=== PATIENT | male | born 1975 | race Caucasian/White ===

== ENCOUNTER 2022-10-15 09:20 | Observation (INO) ==
[2022-10-15] MEDS ORDERED: VANCOMYCIN HCL 1000MG/20ML VIAL ONE (09:45)
[2022-10-15] MEDS ORDERED: WATER, STERILE FOR INJ 10 ML VIAL ONE (09:45)
[2022-10-15] MEDS ORDERED: BUPIVACAINE 0.25% PF 30 ML VIAL ONE (09:45)
[2022-10-15] MEDS ORDERED: LIDOCAINE 1% LOCAL 20 ML VIAL ONE (09:45)
[2022-10-15] MEDS ORDERED: MIDAZOLAM HCL 5 MG/ML 1 ML VIAL ONE (10:38)
[2022-10-15] MEDS ORDERED: ceFAZolin 330 MG/ML 1 GM VIAL ONE (10:39)
[2022-10-15] MEDS ORDERED: fentaNYL citrate PF 100 MCG/2 ML VIAL ONE (10:39)
--- NOTE | 2022-10-15 10:51 | Pre Anesthesia Assessment ---
Date of Service October 15, 2022 Pre Sedation Assessment Vital Signs Temp Pulse Resp BP Pulse Ox O2 Del Method 10/15/22 09:42 36.8 C 69 16 138/101 H 94 Room Air Cardiovascular + regular rate and + regular rhythm Respiratory + respiratory effort normal Pre-Sedation Airway Assessment Smoking Status: Current every day smoker Hx Sleep Apnea: Yes Hx Difficult Intubation: No Short, Thick Neck: No Thyromental Distance: > or= 3.5 Finger Breadths Oral Cavity: + WNL Mallampati Class: III ASA: ASA4 NPO Status Date of Last Intake of Fluids: 10/15/22 Time of Last Intake of Fluids: 07:00 Last Oral Intake of Fluids Comment: sip with meds Date of Last Intake of Solid Food: 10/14/22 Time of Last Intake of Solid Foods: 19:00 Procedure Planning Contraindications for Sedation: none Current Medications Reviewed: Yes Notes The planned sedation has been discussed with the patient. Informed Consent was obtained. I have identified the patient, determined the appropriateness of sedation and have assessed the patient immediately prior to the procedure. All medicine(s) and interventions are by my order.
--- NOTE | 2022-10-15 10:57 | History & Physical Report ---
Date of Service October 15, 2022 Assessment & Plan (1) NICM (nonischemic cardiomyopathy): (2) Left bundle branch block: Plan 1. Cardiomyopathy: Patient is on aggressive medical regimen without significant improvement in LV function. Meets criteria for an ICD as primary prevention against sudden cardiac . He has left bundle branch block morphology on his EKG 166 milliseconds. This makes him a good candidate for biventricular device and cardiac resynchronization therapy. [place] Heart Association class 2 symptoms. No revascularization in the past 90 days. No myocardial infarction in the past 45 days. Estimated longevity greater than 1 year. Plan biventricular ICD History of Present Illness Chief Complaint: Dyspnea Primary Care Provider: Bar Stuart MD The patient is a 47-year-old gentleman discovered to have a nonischemic cardiomyopathy. Currently [place] heart Association class 2 symptoms. No cu rrent symptoms of dizziness or history of syncope. He presents today for implant of a biventricular ICD. Allergies Allergy/AdvReac Type Severity Reaction Status Date / Time latex Allergy Unknown red welts Verified 10/15/22 09:50 aspirin Allergy epitaxis Verified 10/15/22 09:50 salicylates Allergy Unknown Verified 10/15/22 09:50 Home Medications Medication Instructions Recorded Confirmed Type albuterol sulfate 0.63 mg/3 mL 0.63 mg inhalation Q6H PRN 08/25/22 10/15/22 History solution for nebulization shortness of breath or wheezing aspirin 81 mg tablet,delayed 81 mg PO DAILY 08/25/22 10/15/22 History release atorvastatin 40 mg tablet 40 mg PO DAILY 08/25/22 10/15/22 History budesonide 0.25 mg/2 mL suspension 0.5 mg inhalation DAILY 08/25/22 10/15/22 History for nebulization (Pulmicort) empagliflozin 10 mg tablet 10 mg PO DAILY 08/25/22 10/15/22 History (Jardiance) fluticasone propionate 50 2 spray intranasal DAILY 08/25/22 10/15/22 History mcg/actuation nasal spray,suspension ipratropium 20 mcg-albuterol 100 1 puff inhalation QID 08/25/22 10/15/22 History mcg/actuation mist for inhalation (Combivent Respimat) loratadine 10 mg tablet 10 mg PO DAILY 08/25/22 10/15/22 History metformin 500 mg tablet 1,000 mg PO BID 08/25/22 10/15/22 History metoprolol succinate 50 mg 25 mg PO BID 08/25/22 10/15/22 History tablet,extended release 24 hr montelukast 10 mg tablet 10 mg PO QPM 08/25/22 10/15/22 History (Singulair) omeprazole 20 mg capsule,delayed 40 mg PO DAILY 08/25/22 10/15/22 History release paroxetine HCl 40 mg tablet 40 mg PO DAILY 08/25/22 10/15/22 History sacubitril 97 mg-valsartan 103 mg 1 tab PO BID 08/25/22 10/15/22 History tablet (Entresto) spironolactone 25 mg tablet 25 mg PO DAILY 08/25/22 10/15/22 History tamsulosin 0.4 mg capsule 0.4 mg PO DAILY 08/25/22 10/15/22 History Past Med/Surg History Family History (Updated 08/25/22 @ 10:27 by AJ Trevino) Father Diabetes Mother , Lung Disease No problems noted. Sister Sleep apnea Daughter Asthma Daughter Asthma Daughter Eye problems Social History (Updated 08/25/22 @ 10:28 by AJ Trevino) Smoking Status: Current every day smoker Tobacco Type: Cigarettes Cigarettes Per Day: 10; Second Hand Exposure: No; Do You Dip or Chew Tobacco: No (former); Hx Alcohol Use: No Hx Substance Use: No Current Living Situation: Spouse Review of Systems Review of Systems: Per HPI. Some itching of the foot Physical Exam Physical Exam: The patient is alert and oriented. Mood and affect appeared normal. He answered all questions appropriately. HEENT: Pupils are equal and reactive to light and accommodation. Extraocular movements are intact. The sclerae are anicteric. Neuro: Cranial nerves intact Lungs: Clear to auscultation bilaterally. He has good air movement without use of accessory muscles. No rales wheezes or rhonchi. Cardiac: Heart demonstrates a regular rate and rhythm. Normal S1 and S2. No murmurs on examination. Pulses: The patient has palpable radial pulses bilaterally that are equal in intensity Extremities: There was no evidence of hypoperfusion. There is no cyanosis or clubbing. There is no edema. Skin: I did not appreciate any rashes on examination today. Results & Data Results & Data Vital Signs (Past 12 Hours) Vital Signs Temp Pulse Resp BP Pulse Ox O2 Del Method 10/15/22 09:42 36.8 C 69 16 138/101 H 94 Room Air Diagnostic Findings Echocardiogram dated 09/18/2021: Ejection fraction 25%. Severe dilation of the left ventricle. Diffuse hypokinesis. Mild biatrial dilation. Small pericardial effusion. Dated 05/28/2022: Severely reduced LV systolic function with ejection fraction of 15%. Severe left ventricular dilation. Moderate posterior pericardial effusion.
[2022-10-15] MEDS ORDERED: ACETAMINOPHEN 325 MG TAB PO PRN (12:24)
--- NOTE | 2022-10-15 12:24 | Post Anesthesia Assessment ---
Date of Service October 15, 2022 Post Sedation Assessment Vital Signs Temp Pulse Resp BP Pulse Ox O2 Del Method 10/15/22 09:42 36.8 C 69 16 138/101 H 94 Room Air Recovery Score Activity: Moves 4 extremities Respiration: Deep Breath/Cough Circulation: +/-20% PreAnes Value Consciousness: Arouseable (by name) Oxygen Saturation: > 92% On Room Air Discharge Sedation Level of Care: Fast Track Phase II Post Sedation Plan On clinical assessment, the patient appears to have tolerated the sedation without complications. Patient is recovering as anticipated. Patient will continue to be monitored by nursing and may be discharged when sedation discharge criteria are met per below protocol. Upon Completions of procedure up to 15 minutes continue every 5 minute vital signs and the P.A.R. score; then discharge to a Phase I or Fast Track to Phase II per the following guidelines: * Discharge Patient to appropriate Phase II area if PAR is 8 or greater or return to pre- procedure baseline. The post - procedure orders will be as directed. * If PAR score is less than 8 or not return to pre-procedure baseline then patient will follow Phase I monitoring till PAR is reached for Phase II. The Phase I may be done in procedure room or may call to secure a Phase I area. * If naloxone or flumazenil are used for reversal, hold in Phase I for continued monitoring from when last reversal dose was given for a minimum of 60 minutes or longer pending the nurse and/or physician discretion of patient condition before discharge to Phase II. Please call the Sedation Physician to re-evaluate and complete post-note for discharge to Phase II area. Do NOT discharge from procedure sedation or Phase 1 until post- sedation evaluation note is complete by procedure /sedation MD Sedation Discharge Instructions to be given to the patient at discharge to home.
--- NOTE | 2022-10-15 12:24 | Electrophysiology Report ---
Date of Service October 15, 2022 Electrophysiology Procedure Electrophysiology Procedure Report Procedure performed: Implantation of dual-chamber ICD with additional left bundle pacing lead Staff jewelry polisher: Keshawn Fofana MD Indication: The patient is a 47-year-old gentleman with a history of a nonischemic cardiomyopathy. He has [place] heart Association class 2 symptoms. He is on guideline directed medical therapy. He has not had revascularization in the past 90 days or suffer myocardial infarction in the past 40 days. He has an estimated longevity greater than 1 year. He has left bundle branch block morphology on his EKG with a QRS duration greater than 150 milliseconds. He is therefore felt to be a good candidate for an ICD as primary prevention against sudden cardiac . Resynchronization was advised given his left bundle branch block and wide QRS. Procedure in detail: The patient was informed of the risks benefits and alternatives to the intended procedure and she wished to proceed. She was taken to the electrophysiology suite in a fasting state. A preoperative antibiotic had been administered. The patient was monitored electrocardiographically throughout today's procedure and conscious sedation was administered per protocol. The left upper pectoral area is prepped and draped in usual sterile fashion. This area was anesthetized using subcutaneous administration of a xylocaine solution. An incision was made at this site and carried down to the prepectoralis fascia using sharp dissection. Electrocautery was also employed for dissection as well as for hemostasis. A device pocket was fashioned tissues above the pectoralis muscle. Subsequent to this maneuver the left axillary vein was accessed using modified Seldinger technique. A sheath was placed over guidewire at this site used facilitate passage of an ICD lead to the right ventricular apex under fluoroscopic guidance. Adequate sensing threshold parameters were obtained prior to active fixation lead to the endocardial surface. Proximal portion lead was then sutured to prepectoralis fascia using nonabsorbable suture. A sheath was placed over another guidewire and used facilitate passage of the guiding catheter for mapping of the interventricular septum. Once an adequate location was identified a pacing lead was advanced into the interventricular septum until the appropriate electrocardiographic and threshold parameters were adequate. At this point the guiding catheter was removed. The proximal portion lead was then sutured to prepectoralis fascia using nonabsorbable suture. A sheath was placed over the remaining guidewire and used facilitate passage of the pacing lead to the right atrium under fluoroscopic guidance. Adequate sensing threshold parameters were obtained prior to active fixation of this lead to the endocardial surface. The proximal portion lead was then sutured to prepectoralis fascia using nonabsorbable suture. The device pocket was irrigated with antibiotic solution. The leads were then attached to the device. The device and leads were then placed in the pocket and pocket was closed in 3 layers of absorbable suture. Steri-Strips and sterile dressing were applied. The device was tested noninvasively prior to conclusion the procedure. The patient tolerated procedure well there no immediate complications. Equipment used: New pulse generator: Tear Down Worker [employer]. Model number: [id number] serial number [id number] Right atrial lead: Tear Down Worker [employer]. Model number: [id number] serial number [id number] Right ventricular lead: Tear Down Worker [employer]. Model number: 6935 mm serial number [id number] Left bundle pacing lead: Tear Down Worker [employer]. Model 3. 830 serial number [id number] Measured data: Right atrial lead: P-waves measured 2.9 mV. Pacing threshold was 1.25 volts at 0.4 milliseconds with a pacing impedance of 399 Ohms Right ventricular lead: R-waves measured 14.6 mV. Pacing threshold was 0.5 volts at 0.4 millisecond with a pacing impedance of 513 Ohms Left bundle pacing lead: R-waves measured 16.6 mV. Pacing threshold was 0.5 volts at 0.4 milliseconds with a pacing impedance of 760 Ohms Impression: Successful implantation of dual-chamber ICD with additional left bundle pacing lead MNPG Electrophysiology codes Pacing Procedure 1: Pacin Insert permanent lead, single ICD Procedure 1: ICD: 16109 Insert single or dual ICD system PG Moderate Sedation Codes Moderate Sedation Codes Procedure 1: Sedation/Anesthesia: 29946 Mod Sedation by the same physician;Init15 Min Child Age 5 & Up Procedure 2: Sedation/Anesthesia: 18948 Mod Sedation by the same physician; Ea [id number] Minutes
[2022-10-15] MEDS ORDERED: oxyCODONE HCL IR 5 MG TAB (IMMEDIATE RELEASE) PO PRN (12:28)
[2022-10-15] MEDS ORDERED: ALBUTEROL 0.083% NEBU SOLN 3 ML VIAL INH PRN (16:01)
[2022-10-15] MEDS ORDERED: GLUCOSE 40% GEL 15 GM TUBE PO PRN (16:15)
[2022-10-15] MEDS ORDERED: GLUCOSE 10 TAB/TUBE PO PRN (16:15)
[2022-10-15] MEDS ORDERED: CARBOHYDRATES FOR HYPOGLYCEMIA PO PRN (16:15)
[2022-10-15] MEDS ORDERED: GLUCAGON FOR INJ 1 MG VIAL IM PRN (16:15)
[2022-10-15] MEDS ORDERED: DEXTROSE 50% 50 ML SYRINGE IV PRN (16:15)
[2022-10-15] MEDS: metFORMIN HCL 500 MG TAB PO SCH (16:24)
[2022-10-15] MEDS ORDERED: ceFAZolin 2000MG 2,000 MG/15 ML SYR IV ONE (17:00)
--- NOTE | 2022-10-15 17:55 | Electrocardiogram Report ---
Test Reason : Blood Pressure : / mmHG Vent. Rate : 061 BPM Atrial Rate : 061 BPM P-R Int : 180 ms QRS Dur : 100 ms QT Int : 458 ms P-R-T Axes : 054 -60 107 degrees QTc Int : 461 ms Atrial-sensed ventricular-paced rhythm with frequent AV dual-paced complexes Abnormal ECG No previous ECGs available Confirmed by Keshawn Fofana ([id number]) on 10/15/2022 5:54:28 PM Referred By: Hiro Fofana Confirmed By:Hiro Fofana
[2022-10-15] MEDS: IPRATROPIUM BROMIDE HFA INHALER INH SCH (19:28)
[2022-10-15] MEDS: ALBUTEROL HFA INHALER 8.5 GM INH SCH (19:29)
[2022-10-15] MEDS: METOPROLOL SUCC 25MG EXT REL TAB PO SCH (19:36)
[2022-10-15] MEDS: VALSARTAN/SACUBITRIL 103/97MG TAB PO SCH (19:36)
[2022-10-15] MEDS ORDERED: MONTELUKAST SODIUM 10 MG TABLET PO SCH (21:00)
[2022-10-15] MEDS ORDERED: PANTOprazole 40 MG TAB PO SCH (22:00)
--- NOTE | 2022-10-16 07:04 | Discharge Summary ---
Date of Service October 16, 2022 Admission HPI Per Admitting Provider The patient is a 47-year-old gentleman discovered to have a nonischemic cardiomyopathy. Currently [place] heart Association class 2 symptoms. No current symptoms of dizziness or history of syncope. He presents today for implant of a biventricular ICD. Principal Diagnosis nonischemic cardiomyopathy Discharge Exam The patient is alert and oriented. Mood and affect appeared normal. He answered all questions appropriately. HEENT: Pupils are equal and reactive to light and accommodation. Extraocular movements are intact. The sclerae are anicteric. Neuro: Cranial nerves intact Lungs: normal respiratory effort Chest: Evaluation the device implant site did not reveal any evidence of hematoma. No significant drainage or erythema ENMT Mallampati Class: III Respiratory normal respiratory effort Cardiovascular Rate/Rhythm: regular rate and regular rhythm Discharge Data Allergies Allergy/AdvReac Type Severity Reaction Status Date / Time latex Allergy Unknown red welts Verified 10/15/22 09:50 aspirin Allergy epitaxis Verified 10/15/22 09:50 salicylates Allergy Unknown Verified 10/15/22 09:50 Procedures Performed Operation Date: 10/15/22 11:00 Actual Procedures p ICD Insertion Single or Dual - Keshawn Fofana MD s Lead LV (No Priopr Implant) - Keshawn Fofana MD Ordered Studies 10/15/22 07:30 EP Lab Images for PACS ONCE Hospital Course (1) NICM (nonischemic cardiomyopathy): (2) Left bundle branch block: Plan 1. Cardiomyopathy: on the day of admission the patient underwent implantation of an ICD with a left bundle pacing lead. The remainder of hospitalization was uneventful. The following morning a device interrogation revealed good function of all 3 leads. Chest x-ray demonstrated good lead position without pneumothorax. No evidence of hematoma. Total Time Total Time Spent Total Time Spent (In Minutes): 20 Discharge Plan Discharge Items Patient Disposition: Home - Self-Care Reason For Visit: Cardiomyopathy and Left Bundle Branch Block Discharge Diagnosis: cardiomyopathy Condition on Discharge: Good Activity: Resume your previous activity Lifting: No more than 10 pounds Lifting Comment: No lifting left arm above shoulder or behind neck for 6 weeks Bathing: Keep incision dry Bathing Comment: Keep wound dry and steri-strip intact until f/u next week Exercise/Sports: Rest today Driving/Machine Use: Resume 1 day after discharge Non-emergency contact: School Supervisor Call non-emergency contact if: you have any medication questions, your pain is concerning for you, you have a fever and your wound has increased redness Follow-up/Referrals: Bar Stuart MD [Primary Care Provider] - Diet: Carb Consistent or DM2 and Heart Healthy Addtl Attending Provider Instructions: none Pending Studies at Discharge: No Stand-Alone Forms: [facility] JDCPhosphate, Smoking Cessation Medications and DC Order Prescriptions: New oxycodone 5 mg Tablet 5 mg PO Q4H PRN (Reason: pain) Qty: 6 0RF oxycodone 5 mg tablet 5 mg PO Q4H PRN (Reason: pain) Qty: 6 0RF Continued albuterol sulfate 0.63 mg/3 mL solution for nebulization 0.63 mg inhalation Q6H PRN (Reason: shortness of breath or wheezing) Combivent Respimat 20-100 mcg/actuation mist 1 puff inhalation QID Rx Instructions: space evenly during waking hours aspirin 81 mg tablet,delayed release (DR/EC) 81 mg PO DAILY budesonide [Pulmicort] 0.25 mg/2 mL suspension for nebulization 0.5 mg inhalation DAILY Jardiance 10 mg tablet 10 mg PO DAILY loratadine 10 mg tablet 10 mg PO DAILY paroxetine HCl 40 mg tablet 40 mg PO DAILY omeprazole 20 mg capsule,delayed release(DR/EC) 40 mg PO DAILY tamsulosin 0.4 mg capsule 0.4 mg PO DAILY Entresto 97-103 mg tablet 1 tab PO BID metoprolol succinate 50 mg tablet extended release 24 hr 25 mg PO BID spironolactone 25 mg tablet 25 mg PO DAILY metformin 500 mg tablet 1,000 mg PO BID montelukast [Singulair] 10 mg tablet 10 mg PO QPM atorvastatin 40 mg tablet 40 mg PO DAILY fluticasone propionate 50 mcg/actuation spray,suspension 2 spray intranasal DAILY Rx Instructions: administer into each nostril Discharge Orders: Discharge Order (Routine); Ordered 10/16/22 Ordered By: Keshawn Fofana Admission Data Admit Date/Time: 10/15/22 11:10 Attending Provider: Keshawn Fofana Admit Provider: Keshawn Fofana Primary Care Provider: Bar Stuart Coding Level of Care Code 68316 IN/OBS DISCH 30 MIN/LESS Diagnoses NICM (nonischemic cardiomyopathy) I42.8 Left bundle branch block I44.7
[2022-10-16] MEDS: IPRATROPIUM BROMIDE HFA INHALER INH SCH ×2 (07:27→10:47)
[2022-10-16] MEDS: ALBUTEROL HFA INHALER 8.5 GM INH SCH ×2 (07:27→10:47)
[2022-10-16] MEDS: METOPROLOL SUCC 25MG EXT REL TAB PO SCH (07:38)
[2022-10-16] MEDS: metFORMIN HCL 500 MG TAB PO SCH (07:38)
--- NOTE | 2022-10-16 07:38 | XRay Report ---
XR chest 2V PA/lateral HISTORY: Left-sided pacemaker placement. EXACT TIME ORDERED Evaluate for pneumothorax and l COMPARISON: None. FINDINGS: Interval placement left-sided pacemaker/defibrillator. The leads appear intact. No pneumoth orax. No pleural effusions. The heart is enlarged. There is mild central pulmonary vascular congestio n without overt edema. IMPRESSION: 1. Status post left-sided pacemaker. No pneumothorax. 2. Cardiomegaly with mild congestive change. ACT 112: Negative or not required by law. Electronically signed by: Arik Honeycutt M.D. 10/16/2022 7:37 AM
[2022-10-16] MEDS: VALSARTAN/SACUBITRIL 103/97MG TAB PO SCH (07:39)
[2022-10-16] MEDS ORDERED: ASPIRIN 81 MG ECTAB PO SCH (09:00)
[2022-10-16] MEDS ORDERED: BUDESONIDE 0.25 MG/2 ML VIAL (PULMICORT) INH SCH (09:00)
[2022-10-16] MEDS ORDERED: PANTOprazole 40 MG TAB PO SCH (09:00)
[2022-10-16] MEDS ORDERED: LORATADINE 10 MG TAB PO SCH (09:00)
[2022-10-16] MEDS ORDERED: ATORVASTATIN 40 MG TAB PO SCH (09:00)
[2022-10-16] MEDS ORDERED: EMPAGLIFLOZIN 10 MG TAB PO SCH (09:00)
[2022-10-16] MEDS ORDERED: TAMSULOSIN HCL 0.4 MG CAP PO SCH (09:00)
[2022-10-16] MEDS ORDERED: SPIRONOLACTONE 25 MG TAB PO SCH (09:00)
[2022-10-16] MEDS ORDERED: PARoxetine HCL 20 MG TAB PO SCH (09:00)
== END 2022-10-16 11:56 | disposition home or self-care (01) | DRG 227 ==
LOC: EP 09:20 → 2E 11:10 → INTOOBSV 11:10
PROC: EPB.ICD (2022-10-15 11:00)